=== PATIENT | male | born 1965 | race Caucasian/White ===

== ENCOUNTER 2019-03-03 03:29 | Inpatient (IN) | payer OTHER ==
[2019-03-03] VITALS (81 sets, daily range): BP systolic 54–201; BP diastolic 31–109; BMI 31.2
--- NOTE | ~2019-03-03 | HEMODYNAMI ---
PATIENT:DELIA HINOJOSA MEDICAL RECORD: [id number] : 67 [id number] ADMISSION DATE: 03/03/19 Generatedon:03/03/20197:13 Patient name: DELIA HINOJOSA Patient #: [id number] SSN: : 1965 Date of study: 03/03/2019 Page: Of Hemodynamic Procedure Report Patient Data Patient Demographics Procedure consent was obtained First Name: DELIA Gender: Male Last Name: MICAELA : 1965 Patient #: [id number] Age: 53 year(s) Race: Unknown Additional ID: [id number] Contact details [address]: [address] [place] [address] stre State: [place] City: [place] Zip code: [address] Admission Admission Data Admission Date: 03/03/2019 Admission Time: 3:54 Admit Source: Emergency Insurance Payor: Private department health insurance Room #: D.CV07 Height (in.): 72 BSA: 2.26 (m2) Height (cm.): 182.88 BMI: 31.33 (kg/m2) Weight (lbs.): 231 Weight (kg.): 104.78 Lab Results Lab Result Date: 03/03/2019 Lab Result Time: 0:00 Biochemistry Name Units Result Min Max BUN mg/dl 23 --(----)-* 7 18 Creatinine mg/dl 2.1 --(----)-* 0.6 1.3 CBC Name Units Result Min Max Hemoglobin g/dl 17 --(---*)-- 13.5 17.5 Procedure Procedure Types Cath Procedure Diagnostic Procedure LHC Coronaries only Intra-Aortic Balloon Pump Sedation Charges Moderate Sedation up to 30 minutes PCI Procedure Coronary Stent Coronary Stent Initial Procedure Description Procedure Date Procedure Date: 03/03/2019 Procedure Start Time: 6:05 Procedure End Time: 7:03 Procedure Staff Name Function Seth Esquivel MD Performing Physician Sis Andersen RT Monitor Kai Cunningham RT Scrub Martha Choco RN Nurse Procedure Data Cath Procedure Fluoroscopy Diagnostic fluoroscopy Total fluoroscopy Time: time: 15.9 min 15.9 min Diagnostic fluoroscopy Total fluoroscopy dose: dose: 1939 mGy 1939 mGy Contrast Material Contrast Material Type Amount (ml) Isovue 300 122 Entry Location Entry Primary Successful Side Size Upsize Upsize Entry Closure Succes sful Closure Location (Fr) 1 (Fr) 2 (Fr) Remarks Device Remarks Femoral Right 6 Fr 7 Fr artery Short Short Femoral Left 6 Fr Exoseal artery Short Estimated blood loss: 5 ml Procedure Complications No complications Procedure Medications Medication Administration Route Dosage 0.9% NaCl I.V. 100 ml/hr Oxygen 100 Lidocaine 2% added to field 20 Heparin Flush Bag added to field 2 bags (1000units/500ml NS) Diprivan 1% I.V. 12 mcg/kg/min (Propofol) Levophed (8mg/250ml I.V. drip 15 mcg/min D5W) Heparin Bolus I.V. 35401 units Neosynephrine I.V. drip 60 mcg/kg/min (20mg/250ml D5W) Integrilin (Bolus I.V. 9.5 ml 2mg/ml) Integrilin Drip I.V. drip 8.5 ml/hr (75mg/100ml) Effient 60 mg Hemodynamics Rest BSA: 2.26 (m2) HGB: 17 (g/dl) O2 Consumption: Estimated: 288.56 (ml/min) O2 Cons umption indexed: Estimated:127.68 (ml/min/m) Heart Rate: 93 (bpm) Snapshots Pre Cath Intra NCS Post Cath Vital Signs Time Heart Resp SPO2 etCO2 NIBP (mmHg) Rhythm Pain Sedation Rate (ipm) (%) (mmHg) Status Level (bpm) 5:50:47 96 29 100 0 Measuring NSR 0 (11) 5(A) , No pain 5:52:11 93 30 100 0 Time NSR 0 (11) 5(A) Exceeded , No pain 5:56:17 95 32 96 0 Time NSR 0 (11) 5(A) Exceeded , No pain 6:01:15 89 29 98 0 Measuring NSR 0 (11) 5(A) , No pain 6:02:17 88 30 100 0 62/41(52) NSR 0 (11) 5(A) , No pain 6:07:16 86 31 98 0 Measuring NSR 0 (11) 5(A) , No pain 6:08:38 81 33 100 0 Time NSR 0 (11) 5(A) Exceeded , No pain 6:13:37 94 34 92 0 Measuring NSR 0 (11) 5(A) , No pain 6:15:01 100 34 100 0 Time NSR 0 (11) 5(A) Exceeded , No pain 6:20:00 103 48 100 0 Measuring NSR 0 (11) 5(A) , No pain 6:20:27 131 38 100 0 Time NSR 0 (11) 5(A) Exceeded , No pain 6:25:01 88 35 99 0 85/50(64) NSR 0 (11) 5(A) , No pain 6:30:00 86 33 100 0 Measuring NSR 0 (11) 5(A) , No pain 6:31:22 85 32 90 0 Time NSR 0 (11) 5(A) Exceeded , No pain 6:36:21 82 13 90 0 Measuring NSR 0 (11) 5(A) , No pain 6:37:45 83 29 92 0 Time NSR 0 (11) 5(A) Exceeded , No pain 6:41:59 31 26 94 0 129/92(122) NSR 0 (11) 5(A) , No pain 6:46:58 82 24 100 0 Measuring NSR 0 (11) 5(A) , No pain 6:48:20 83 27 96 0 Time NSR 0 (11) 5(A) Exceeded , No pain 6:53:19 86 31 100 0 Measuring NSR 0 (11) 5(A) , No pain 6:54:43 84 29 97 0 Time NSR 0 (11) 5(A) Exceeded , No pain 6:59:42 85 35 98 0 Measuring NSR 0 (11) 5(A) , No pain 7:01:06 85 30 98 0 62/48(0) NSR 0 (11) 5(A) , No pain Medications Time Medication Route Dose Verified Delivered Reason Notes Effectiveness by by 5:53:27 0.9% NaCl I.V. 100 ml/hr Seth Martha used for Alvin Wilhelm electrical products engineer 5:53:49 Oxygen ventilator 100% FiO2 Seth Martha for low 02 sat s Alvin Wilhelm RN 5:53:55 Lidocaine 2% added to 20ml vial Seth Seth used for field Alvin Esquivel MD procedure 5:54:00 Diprivan 1% I.V. 12 Seth Martha for sedation infusing (Propofol) mcg/kg/min Alvin Wilhelm upon RN arrival 5:54:00 Heparin Flush added to 2 bags Seth Seth used for Bag field Alvin Esquivel MD procedure (1000units/500ml NS) 5:54:55 Levophed I.V. drip 15 mcg/min Seth Martha For hypotensio n infusing (8mg/250ml D5W) Alvin Wilhelm upon RN arrival 6:28:07 Heparin Bolus I.V. 43297 Seth Martha for verified units Alvin Wilhelm anticoagulation with Dr. VASYL Esquivel 6:36:28 Neosynephrine I.V. drip 60 Seth Martha For hypotensio n (20mg/250ml D5W) mcg/kg/min Alvin Wilhelm RN 6:39:36 Integrilin I.V. 9.5 ml Seth Martha for wasted (Bolus 2mg/ml) Alvin Wilhelm antiplatelet 0.5mL RN therapy 6:57:41 Integrilin Drip I.V. drip 8.5 ml/hr Seth Martha for (75mg/100ml) Alvin Wilhelm antiplatelet RN therapy 7:06:47 Effient NGT 60 mg Seth Martha for Alvin Wilhelm antiplatelet RN therapy Procedure Log Time Note 5:21:31 Informed consent obtained and on chart 5:21:34 Admit Source: Emergency department 5:21:50 Diagnostic Cath status Emergency 5:21:51 Martha Wilhelm RN sent for patient. Start room use. 5:21:53 Time tracking: Call back (After hours or weekends) 5:21:56 Plan of Care:Hemodynamics will remain stable., Cardiac rhythm will remain stable., Comfort level will be maintained., Respiratory function will remain adequate., Patient/ family verbilizes understanding of procedure., Procedure tolerated without complication., Recovers from procedure without complications.. 5:37:29 Patient received from ED to CCL 1 On ventilator. Tansferred to table in Supine position. 5:37:30 Warm blankets applied, and rosenda hugger turned on for patient comfort. 5:37:31 Correct patient and procedure confirmed by team. 5:37:31 ECG and BP/O2 sat monitors applied to patient. 5:48:58 Vital chart was started 5:49:01 Baseline sample Acquired. 5:49:38 Full Disclosure recording started 5:49:47 H&P Date Dictated: 03/03/2019 New H&P dictated by physician.. 5:49:49 Pre-procedure instructions explained to patient. 5:49:49 Pre-op teaching completed and patient verbalized understanding. 5:49:50 Family in waiting room. 5:49:52 Patient NPO since Midnight. 5:49:55 Is the patient allergic to Iodine/contrast media? No. 5:49:56 Was the patient premedicated? No 5:50:04 Is patient on blood thinner?No 5:50:06 Patient diabetic? Unknown. 5:50:19 Previous problem with sedation/anesthesia? Unknown ? 5:50:22 Snore? Unknown 5:50:24 Sleep apnea? Unknown 5:50:26 Deviated septum? Unknown 5:50:27 Opens mouth fully? Unknown 5:50:29 Sticks out tongue? Unknown 5:50:32 Airway obstruction? Unknown ? 5:50:35 Dentures? Unknown ? 5:53:27 0.9% NaCl 100 ml/hr I.V. was administered by Martha Wilhelm RN; used for procedure; 5:53:49 Oxygen 100% FiO2 ventilator was administered by Martha Wilhelm RN; for low 02 sats; 5:53:55 Lidocaine 2% 20ml vial added to field was administered by Seth Esquivel MD; used for procedure; 5:54:00 Diprivan 1% (Propofol) 12 mcg/kg/min I.V. was administered by Martha Wilhelm RN; for sedation; infusing upon arrival 5:54:00 Heparin Flush Bag (1000units/500ml NS) 2 bags added to field was administered by Seth Esquivel MD; used for procedure; 5:54:55 Levophed (8mg/250ml D5W) 15 mcg/min I.V. drip was administered by Martha Wilhelm RN; For hypotension; infusing upon arrival 5:56:38 Pre procedure: right dorsailis pedis pulse None 5:56:44 Pre procedure: left dorsailis pedis pulse None 5:56:48 Patient pain scale 0/10 ?. 5:57:07 IV patent on arrival in right hand with 0.9% NaCl at O. 5:57:10 Lab results completed and on chart. 5:57:16 Bilateral groins area was prepped with chlora-prep and draped in sterile fashion 5:57:17 Alarms reviewed by R. N. 5:57:17 Sharps counted by scrub and verified by R.N. 5:57:30 Physician arrived 5:57:30 --------ALL STOP TIME OUT------ 5:57:31 Final Timeout: patient, procedure, and site verified with staff and physician. All members of the team are in agreement. 5:57:37 Bilateral groins site verified by team. 5:57:40 Maximum allowable Isovue 300 dose 550ml. Physician notified. (300ml for normal creatinines. For patients with creatinine of 1.7 or higher multiply weight(kg) x 5 divided by creatinine.) 5:57:45 Fire Safety Assessment: A--An alcohol-based skin anteseptic being used preoperatively., C--Open oxygen or nitrous oxide is being used., D--An ESU, laser, or fiber-optic light is being used. 5:57:50 Physical assessment completed. ASA score P 4 - A patient with severe systemic disease that is a constant threat to life as per Seth Esquivel MD. 5:57:54 Sedation plan: IV Moderate Sedation Medication:Versed, Fentanyl 6:02:59 Patient Weight : 231 lbs 6:03:08 Patient Height : 72 inches 6:03:08 Insurance Payor : Private health insurance 6:03:33 Lab Result : Hemoglobin 17 g/dl 6:03:33 Lab Result : Creatinine 2.1 mg/dl 6:03:33 Lab Result : BUN 23 mg/dl 6:03:39 Procedure started. 6:03:43 Use device set CATH PACK 6:03:44 ACIST Syringe (78007) opened to sterile field. 6:03:45 ACIST Hand Control (73664) opened to sterile field. 6:03:45 ACIST Manifold (21500) opened to sterile field. 6:03:46 Medline Cath Pack ([id number]) opened to sterile field. 6:03:46 Bag Decanter () opened to sterile field. 6:03:47 DIAGNOSTIC WIRE .035 260cm J wire (900102) opened to sterile field. 6:03:59 SHEATH 6FR Perry (OWL003) opened to sterile field. 6:05:01 Local anesthetic to right femoral artery with Lidocaine 2% by Seth Esquivel MD.INITIAL ACCESS ONLY 6:06:23 A 6 Fr Short sheath was inserted into the Right Femoral artery 6:06:44 DIAGNOSTIC Multipack 5Fr catheter set (LN2415) opened to sterile field. 6:07:35 5 Fr jl 4 guide catheter was inserted over the wire 6:08:30 LCA angiography performed. 6:08:32 Injector settings: Ml/sec: 3, Volume: 6, 6:08:46 Catheter removed. 6:09:01 LAD occluded 6:09:12 SHEATH 7FR Perry (ZAP413) opened to sterile field. 6:12:03 IABP 40cm balloon catheter ([id number]) opened to sterile field. 6:16:02 Sheath upsized to a 7 Fr Short. 6:16:57 difficulty getting IABP through 7F sheath; upsized to 8F sheath 6:17:07 40cc IABP inserted into the RFA . 6:21:27 Augmentation: 1:1 per physician. 6:23:41 Unable to obtain BP at this time, MD aware 6:23:57 Local anesthetic to left femerol artery with Lidocaine 2% by Seth Esquivel MD.ADDITIONAL ACCESS 6:25:45 INFLATOR Merit BasixCompak ([id number]) opened to sterile field. 6:25:45 BMW 300cm [place] 2 J wire ([id number]) opened to sterile field. 6:26:43 TUBING High Pressure Extension Tubing (Alvin) ([id number]) opened to sterile field. 6:27:39 GUIDE 6FR XBLAD 3.5 catheter ([id number]) opened to sterile field. 6:28:07 Heparin Bolus 73733 units I.V. was administered by Martha Wilhelm RN; for anticoagulation; verified with Dr. Esquivel 6:28:19 A 6 Fr Short sheath was inserted into the Left Femoral artery 6:28:26 6 Fr xblad 3.5 guide catheter was inserted over the wire 6:29:18 bmw wire advanced. 6:31:09 Wire removed. 6:31:40 WHISPER 300cm guide wire ([id number]) opened to sterile field. 6:36:28 Neosynephrine (20mg/250ml D5W) 60 mcg/kg/min I.V. drip was administered by Martha Wilhelm RN; For hypotension; 6:36:52 whisper wire advanced. 6:36:55 Wire advanced across lesion. 6:37:50 Inflate balloon Inflation number: 1 A EMERGE OTW 3.0 x 20 balloon ([id number]) was prepped and advanced across the Prox LAD, then inflated to 12 COOPER for 0:10 (min:sec). 6:38:17 Inflation number: 2 The EMERGE OTW 3.0 x 20 balloon ([id number]) was reinflated across the Prox LAD, to 8 COOPER for 0:10 (min:sec). 6:39:36 Integrilin (Bolus 2mg/ml) 9.5 ml I.V. was administered by Martha Wilhelm RN; for antiplatelet therapy; wasted 0.5mL 6:42:35 Balloon removed over the wire. 6:44:02 Place stent Inflation Number: 1 A DEVIN OTW 3.0 x 26 stent ([id number]) was prepped and advanced across the Mid LAD. The stent was deployed at 13 COOPER for 0:10 (min:sec). 6:47:19 Place stent Inflation Number: 3 A DEVIN OTW 3.5 x 22 stent ([id number]) was prepped and advanced across the Prox LAD. The stent was deployed at 13 COOPER for 0:10 (min:sec). 6:50:58 Wire removed. 6:51:03 bmw wire advanced. 6:51:25 Stent catheter was removed intact over wire. 6:53:59 Wire removed. 6:54:31 Guide catheter removed. 6:54:44 5 Fr 3drc guide catheter was inserted over the wire 6:55:40 RCA angiography performed. 6:55:43 Injector settings: Ml/sec: 3, Volume: 6, 6:57:35 Catheter removed. 6:57:41 Integrilin Drip (75mg/100ml) 8.5 ml/hr I.V. drip was administered by Martha Wilhelm RN; for antiplatelet therapy; 6:58:57 EXOSEAL 6Fr (EX600) opened to sterile field. 6:59:14 Sheath removed intact; hemostasis achieved with Exoseal to the Left Femoral artery. 7:00:03 Procedure ended.(Physican Out) 7:00:52 Fluoroscopy time 15.90 minutes. 7:01:03 Fluoroscopy dose: 1939 mGy 7:01:03 Flurop Dose total: 1939 7:01:09 Contrast amount:Isovue 300 122ml. 7:01:13 Sharps counted by scrub and verified by R.N. 7:01:17 Insertion/operative site no bleeding no hematoma. 7:01:42 Post-op/insertion site Left Femoral artery dressed using a 4 x 4 and Tegaderm. 7:01:51 Post Procedure Pulses reassessed and unchanged 7:01:56 Post procedure rhythm: unchanged. 7:01:58 Estimated blood loss: 5 ml 7:02:00 Post procedure instruction explained to patient.Patient verbalizes understanding. 7:02:01 Patient needs reinforcement of post procedure teaching. 7:02:31 Procedure type changed to Cath procedure, Diagnostic procedure, LHC, Coronaries only, Intra-Aortic Balloon Pump, Sedation Charges, Moderate Sedation up to 30 minutes, PCI procedure, Coronary Stent, Coronary Stent Initial 7:02:32 Procedure and supply charges have been captured, reviewed, submitted and are correct. 7:02:38 Procedure Complication : No complications 7:02:40 Vital chart was stopped 7:02:41 See physician's report for complete and final results. 7:03:14 IABP was sutured in with 2.0 silk. 7:03:25 Report given to CVICU. 7:03:28 Patient transfered to CVICU with Stretcher. 7:03:30 Procedure ended. 7:03:30 Full Disclosure recording stopped 7:06:47 Effient 60 mg NGT was administered by Martha Wilhelm RN; for antiplatelet therapy; 7:11:54 End room use (Document Last) Intervention Summary Intervention Notes Time ActionType Lesion and Equipment Action# Pressure Duration Attributes Used 6:37:50 Inflate Prox LAD EMERGE OTW 1 12 00:10 balloon 3.0 x 20 balloon ([id number]) 6:38:17 Reinflate Prox LAD EMERGE OTW 2 8 00:10 balloon 3.0 x 20 balloon ([id number]) 6:44:02 Place stent Mid LAD DEVIN OTW 3.0 1 13 00:10 x 26 stent ([id number]) 6:47:19 Place stent Prox LAD DEVIN OTW 3.5 3 13 00:10 x 22 stent ([id number]) Device Usage Item Name Manufacture Quantity Catalog Number [facility] Minimal Lot# / Charge Number Stock Stock Serial# Code ACIST Syringe Acist 1 49156 433615 241673 03648 1 20 (77546) Medical Systems Inc ACIST Hand Acist 1 88926 202226 182102 24127 6 5 Control (18845) [employer] ACIST Manifold Acist 1 10751 653871 950735 53657 3 5 (29337) Medical Systems [employer] Medline Cath Medline 1 [id number] 310514 45638 95537 2 5 Pack ([id number]) Bag Decanter Microtek 1 2001S 152248 10285 08134 1 5 () Medical Inc. DIAGNOSTIC WIRE St Jovanni 1 613892 032920 736055 06336 1 30 .035 260cm J wire (446782) SHEATH 6FR Terumo 1 XJA730 902547 081100 10981 6 40 Perry (ZLB312) DIAGNOSTIC Cardinal 1 TB0351 636038 30928 08496 4 30 Multipack 5Fr Health catheter set (GM4457) SHEATH 7FR Terumo 1 ICC287 849509 047399 73780 8 5 Perry (IZP566) IABP 40cm [facility] 1 [id number] 994810 584624 44710 9 1 Pinevent catheter (558963) ([id number]) INFLATOR Merit Merit 1 UB0660 159667 400590 92164 9 15 [facility] (SQ0740) BMW 300cm Daly 1 [id number] 543957 843974 53172 0 5 [place] 2 J Vascular wire ([id number]) TUBING High Merit 1 [id number] 316843 42630 27816 3 10 Pressure Medical Extension Tubing (Esquivel) (RF5008D) GUIDE 6FR XBLAD Cardinal 1 [id number] 929899 999723 08073 7 10 3.5 catheter Health (18284526) WHISPER 300cm Daly 1 [id number] 099026 334548 57754 9 5 guide wire Vascular (4189958UL) EMERGE OTW 3.0 Payne 1 [id number] 683946 833548 47819 7 5 [id number] x 20 balloon Scientific ([id number]) DEVIN OTW 3.0 x Medtronic 1 [id number] 249053 3545648 42174 7 5 [id number] 26 stent ([id number]) DEVIN OTW 3.5 x Medtronic 1 [id number] 138816 9694760 28104 8 5 [id number] 22 stent ([id number]) EXOSEAL 6Fr Cardinal 1 EX600 928354 318153 79361 9 10 (EX600) Health Signature Audit Wisner Stage Time Signature Unsigned Intra-Procedure 03/03/2019 Sis Andersen 7:13:31 AM RT(R) Signatures Monitor : Sis Andersen RT Signature : Date : Time : [id number] [place] [address]
[2019-03-03 03:50] LABS: MCH 29.9 pg (26.0-34.0); MEAN PLATELET VOLUME 9.6 fL (7.4-10.4); PLATELET COUNT 282 10x3/uL (130-400); RBC 5.68 10x6/uL (4.20-6.10); RDW 13.4 % (11.5-14.5); WBC 34.8 10x3/uL (4.8-10.8)
--- NOTE | 2019-03-03 04:00 | NUR ---
PROPOFOL RATE DECREASED TO 10MCG
[2019-03-03 04:02] LABS: APTT 24.8 SECONDS (22.8-39.4); INR 1.15 (0.85-1.17); PROTIME 14.1 SECONDS (11.6-15.0)
--- NOTE | 2019-03-03 04:05 | NUR ---
NOREPI RATE INCREASED TO 20 MCG/MIN
[2019-03-03 04:06] LABS: ALBUMIN 3.5 g/dL (3.4-5.0); ALKALINE PHOSPHATASE 99 U/L (46-116); ALT (SGPT) 530 U/L (10-68); BILIRUBIN - TOTAL 0.67 mg/dL (0.2-1.3); CALC OSMOLALITY 304 mosm/kg (275-300); CALCIUM 8.5 mg/dL (8.5-10.1); CARBON DIOXIDE 25.7 mmol/L (21.0-32.0); CHLORIDE - SERUM 104 mmol/L (98-107); CREATININE - SERUM 2.1 mg/dL (0.6-1.3); GLUCOSE 318 mg/dL (74-106); POTASSIUM - SERUM 3.6 mmol/L (3.5-5.1); PROTEIN - SERUM 6.9 g/dL (6.4-8.2); SODIUM 145 mmol/L (136-145); UREA NITROGEN 23 mg/dL (7-18); eGFR NON AFRICAN AMERICAN 35 mL/min (90-120)
[2019-03-03 04:20] LABS: LYMPHOCYTES 8 % (15-50); MONOCYTES 6 % (2-11); NEUTROPHILS 74 % (40-80); PLATELET ESTIMATE NORMAL; PLATELET MORPHOLOGY GIANT PLTS PRESENT
[2019-03-03 04:21] LABS: CKMB 210.6 U/L (0.0-3.6)
[2019-03-03 04:28] LABS: CREATINE KINASE 2044 UL (21-232); TROPONIN-I 14.016 ng/mL (0.000-0.060)
--- NOTE | 2019-03-03 04:32 | NUR ---
PT FIGHTING INTUBATION AT THIS TIME. RN AND JAD HUNG AT PT BEDSIDE. PT SINUS SHAHBAZ AT THIS TIME. ATROPINE ADMINISTERED PER JAD HUNG INSTRUCTION.
--- NOTE | 2019-03-03 04:35 | NUR ---
PT SINUS SHAHBAZ AT THIS TIME, DR HUNG EDP AT BEDSIDE. LEVOPHED AND NOREPI INFUSIONS STOPPED AT THIS TIME. RN BEGAN CPR AT DR HUNG INSTRUCTION.
--- NOTE | 2019-03-03 04:42 | NUR ---
PULSE DETECTED AT THIS TIME. CPR STOPPED.
--- NOTE | 2019-03-03 04:45 | NUR ---
DR JOSEPH AT BEDSIDE
--- NOTE | 2019-03-03 04:50 | NUR ---
REGIONAL SALES MANAGER CONSENT FORM SIGNED BY CAROLINE THOMAS WHO IS NEXT OF KIN. CONSENTS WITNESSED AND SIGNED BY WITNESSES WELL.
--- NOTE | 2019-03-03 04:59 | NUR ---
NS INFUSION STOPPED AT THIS TIME.
--- NOTE | 2019-03-03 05:18 | NUR ---
PT BP 85/57, NOREPI RESTARTED AT 2MCG/MIN
--- NOTE | 2019-03-03 05:20 | NUR ---
AGRICULTURE LABORATORY TECHNICIAN RN AT PT BEDSIDE.
--- NOTE | 2019-03-03 05:23 | NUR ---
NOREPI INFUSION INCREASED TO 5MCG/MIN
--- NOTE | 2019-03-03 07:48 | NUR ---
RECIEVED PT FROM CAR SCRUBBER. SEE ASSESSMENT.
--- NOTE | 2019-03-03 08:20 | NUR ---
CONSENT OBTAINED FOR PICC LINE. AARON ROOT HERE.
--- NOTE | 2019-03-03 09:00 | NUR ---
DR CUEVAS HERE SEEING AND ASSESSING PATIENT.
[2019-03-03 09:15] LABS: HEMOGLOBIN 12.4 g/dL (13.5-17.5); RBC 4.22 10x6/uL (4.20-6.10); WBC 36.8 10x3/uL (4.8-10.8)
[2019-03-03 09:16] LABS: HEMATOCRIT 38.2 % (42.0-54.0); MCH 29.4 pg (26.0-34.0); MCHC 32.5 g/dL (31.0-37.0); MCV 90.5 fL (80.0-100.0); MEAN PLATELET VOLUME 9.9 fL (7.4-10.4); PLATELET COUNT 246 10x3/uL (130-400); RDW 13.7 % (11.5-14.5)
[2019-03-03 09:44] LABS: LYMPHOCYTES 11 % (15-50); MONOCYTES 2 % (2-11); NEUTROPHILS 75 % (40-80); PLATELET ESTIMATE NORMAL
--- NOTE | 2019-03-03 10:39 | NUR ---
-CALLED TO INK MAKER TO CHECK OXYGENATION OF PATIENT. HE WAS ON 100% WITH 02 SAT OF 80%. INCREASED PEEP TO [address] JOSEPH
--- NOTE | 2019-03-03 10:40 | NUR ---
03/03/19 0830-RR INCREASED TO 22 AND VT DECREASED TO [address] ZAYAS
[2019-03-03 11:11] LABS: BILIRUBIN - TOTAL 0.34 mg/dL (0.2-1.3); CALCIUM 7.1 mg/dL (8.5-10.1); CREATININE - SERUM 2.3 mg/dL (0.6-1.3)
[2019-03-03 11:25] LABS: ALBUMIN 1.8 g/dL (3.4-5.0); ANION GAP 18.7 mmol/L (8-16); CARBON DIOXIDE 17.3 mmol/L (21.0-32.0); PROTEIN - SERUM 3.4 g/dL (6.4-8.2)
--- NOTE | 2019-03-03 11:30 | NUR ---
DR MEJIA HERE. CT REPLACED DUE TO NON FUNCTIONING. CXR OBTAINED. VIEWED BY DR MEJIA. SUCTION 30 CM.
--- NOTE | 2019-03-03 13:30 | NUR ---
DR MEJIA HERE SEEING PT. DECREASE SUCTION ON CHEST TUBE TO 20CM.
--- NOTE | 2019-03-03 14:00 | NUR ---
FENTANYL STARTED AT 50 MCG/HR. VERSED INFUSING AT 5MG/HR. DIPRAVAN INFUSING AT 4MCG/KG/MIN. AUGMENTED PRESSURE 70
--- NOTE | 2019-03-03 14:00 | NUR ---
TEACY HERE DOING ECHO.
--- NOTE | 2019-03-03 15:06 | NUR ---
03/03/19 1130-PEEP DECREASED TO [address] ZAYAS
[2019-03-03 16:56] LABS: APTT 37.9 SECONDS (22.8-39.4); INR 2.04 (0.85-1.17); PROTIME 22.3 SECONDS (11.6-15.0)
--- NOTE | 2019-03-03 18:38 | NUR ---
FAMILY HAS BEEN AT BEDSIDE ALL DAY BEING UPDATED WITH EVERY RESULT. WEANING ELLIS. INCREASING EPI PER DR ZAYAS VERBAL ORDER. COMPLETE BATH AND PARTIAL LINEN CHANGE.
--- NOTE | 2019-03-03 19:20 | NUR ---
REPORT RECIEVED AND CARE ASSUMED. UNRESPONSIVE TO STIMULATION. MULTIPLE IV FLUIDS. SEE FLOW SHEET. SCLERA EDEMA NOTED. VENT PER ETT. SEE FLOWSHEET FOR SETTINGS. IABP WITH KALIE TO R GROIN. KALIE IS DAMPENED. LEVELED, ZEROED AND FLUSHED. UNABLE TO MAINTAIN A GOOD WAVEFORM. CUFF BP INITIATED. FEBRILE. PERIPHERAL PULSES PALPABLE.
--- NOTE | 2019-03-03 20:25 | NUR ---
[facility] UPDATED ON PT CONDITION. SPOKE WITH AROLDO.
--- NOTE | 2019-03-03 21:15 | NUR ---
FAMILY AT BEDSIDE. SEDATION DECREASED. PT IS WAKING UP. HE IS TRACKING WITH HIS EYES AND FOLLOWS SIMPLE COMMANDS. BP IS INCREASING BUT O2 SAT IS DECREASING. SEDATION ADJUSTED BACK TO RATE PRIOR TO SEDATION VACATION. PT CALMS DOWN O2 SATS ARE GRADUALLY INCREASING.
[2019-03-04] VITALS (94 sets, daily range): BP systolic 68–174; BP diastolic 34–109
--- NOTE | 2019-03-04 01:00 | NUR ---
APTT 38.8. 3000 UNITS HEPARIN GIVEN AND RATE INCREASED TO 800 UNITS/HR.
[2019-03-04 01:21] LABS: HEMATOCRIT 33.9 % (42.0-54.0); HEMOGLOBIN 11.7 g/dL (13.5-17.5); MCH 30.3 pg (26.0-34.0); MCHC 34.5 g/dL (31.0-37.0); MCV 87.8 fL (80.0-100.0); RBC 3.86 10x6/uL (4.20-6.10); WBC 31.3 10x3/uL (4.8-10.8)
--- NOTE | 2019-03-04 05:30 | NUR ---
O2 SAT IS GRADUALLY DECREASING AND BREATH SOUNDS ARE MORE CONGESTED. SPOUSE REMAINS AT BEDSIDE.
[2019-03-04 07:22] LABS: HEMATOCRIT 36.6 % (42.0-54.0); HEMOGLOBIN 11.8 g/dL (13.5-17.5); MCH 29.4 pg (26.0-34.0); MCHC 32.2 g/dL (31.0-37.0); MCV 91.3 fL (80.0-100.0); MEAN PLATELET VOLUME 10.8 fL (7.4-10.4); PLATELET COUNT 181 10x3/uL (130-400); RBC 4.01 10x6/uL (4.20-6.10); RDW 14.4 % (11.5-14.5); WBC 26.7 10x3/uL (4.8-10.8)
--- NOTE | 2019-03-04 08:00 | NUR ---
STEPHEN WITH [facility] CALLED TO CHECK ON STATUS OF PATIENT. LAB RESULTS REVIEWED. ASKED TO BE NOTIFIED WITH CHANGE IN PT STATUS. PT REMAINS FULL CODE.
[2019-03-04 08:03] LABS: CARBON DIOXIDE 21.5 mmol/L (21.0-32.0)
[2019-03-04 08:13] LABS: CREATININE - SERUM 4.7 mg/dL (0.6-1.3)
[2019-03-04 08:14] LABS: ANION GAP 23.4 mmol/L (8-16); CALCIUM 6.6 mg/dL (8.5-10.1); POTASSIUM - SERUM 5.9 mmol/L (3.5-5.1)
[2019-03-04 08:53] LABS: LYMPHOCYTES 17 % (15-50); MONOCYTES 14 % (2-11); NEUTROPHILS 67 % (40-80); PLATELET ESTIMATE NORMAL; ROULEAUX OCC
--- NOTE | 2019-03-04 09:09 | NUR ---
LAB RESULTS CALLED TO DR VIERA. ASKED FOR RENAL TO BE CONSULTED. DR MEJIA BY TO CHECK ON PATIENT. SPOKE WITH FAMILY AT BEDSIDE.
--- NOTE | 2019-03-04 10:50 | NUR ---
ICE PACKS PLACED AT AXILLARY AND GROIN
--- NOTE | 2019-03-04 11:54 | NUR ---
DR VIERA BY TO SEE PATIENT. SPOKE WITH FAMILY. ASKED FOR SEDATION TO BE INCREASED AND PT RR KEPT UNDER 25.
--- NOTE | 2019-03-04 13:02 | NUR ---
SON CAME BY AND ASKED THAT ALL DECISIONS AND PHYSICIAN CONVERSATIONS ARE ADRESSED TO HIM. LET HIM KNOW THAT ALL PHYSICIANS HAVE MADE ROUNDS AT THIS TIME. HE DID NOT ASK ANY ADDITIONAL QUESTIONS OR EXPRESS ANY ADDITIONAL DESIRES. MADE IT KNOWN THAT HE IS THE PATIENT'S FIRST BORN AND THAT EVERYTHING SHOULD GO THROUGH HIM AND NOT THE PATIENT'S GIRLFRIEND.
--- NOTE | 2019-03-04 14:02 | NUR ---
ICE PACKS PLACED AT AXILLARY AND GROIN
--- NOTE | 2019-03-04 15:30 | NUR ---
FULL BATH AND LINEN CHANGE. BERNAL CARE. G WIPES.
--- NOTE | 2019-03-04 17:10 | NUR ---
URINE SAMPLE OBTAINED. ONLY ENOUGH FOR UA. WILL WORK TO GET FOR CULTURE.
--- NOTE | 2019-03-04 17:30 | NUR ---
PT PRESSURES DROPPED TO 70'S. MAXED OUT ON ALL PRESSORS. CALLED AND SPOKE WITH DR VIERA AND DR WARE.
[2019-03-04 17:42] LABS: APPEARANCE HAZY (CLEAR); COLOR YELLOW (YELLOW)
[2019-03-04 17:43] LABS: BILIRUBIN NEGATIVE (NEGATIVE); GLUCOSE 50 mg/dL (NEGATIVE); KETONE NEGATIVE (NEGATIVE); NITRITE NEGATIVE (NEGATIVE); PROTEIN 1+ mg/dL (NEGATIVE); SPECIFIC GRAVITY 1.015 (1.005-1.020); UROBILINOGEN NORMAL (NORMAL)
[2019-03-04 17:44] LABS: BACTERIA MANY /hpf (NONE SEEN); RED CELLS - URINE 25-50 /hpf (0-5)
--- NOTE | 2019-03-04 18:12 | NUR ---
LABS OBTAINED. TOOK MULTIPLE STICKS AND LAB TECHS TO GET SAMPLE.PRESSURES HAVE STABLIZED AT THIS TIME WITH DOPAMINE ON. FAMILY HAS BEEN UPDATED.
[2019-03-04 18:37] LABS: CARBON DIOXIDE 19.2 mmol/L (21.0-32.0)
[2019-03-04 18:48] LABS: ANION GAP 24.8 mmol/L (8-16); CREATININE - SERUM 6.5 mg/dL (0.6-1.3)
[2019-03-04 18:49] LABS: CALCIUM 6.8 mg/dL (8.5-10.1)
--- NOTE | 2019-03-04 18:49 | NUR ---
CRITICAL CALCIUM CALLED FROM LAB, INFORMED PTS NURSE COURTNI
--- NOTE | 2019-03-04 19:10 | NUR ---
REPORT RECIEVED. CARE ASSUMED. SEDATION HAS BEEN OFF FOR 2 HRS. HE IS STARTING TO RESPOND TO STIMULI.
--- NOTE | 2019-03-04 19:30 | NUR ---
VERSED AND FENTANYL RESTARTED. RESPIRATIONS BEGINNING TO DECREASE. O2 SAT INCREASING. WEANING PRESSORS PER CUFF PRESSURES DUE TO KALIE HAVING A DAMPENED WAVEFORM.
--- NOTE | 2019-03-04 21:00 | NUR ---
FAMILY AT BEDSIDE VISITING. I HAVE ASKED THEM TO KEEP STIMULATION OF PT TO A MINIMUM DUE TO HIS O2 SAT DECREASING WITH ANY STIMULI. LEVOPHED HAS BEEN WEANED TO 15 MCG/MIN.
[2019-03-05] VITALS (91 sets, daily range): BP systolic 86–139; BP diastolic 37–93
--- NOTE | 2019-03-05 00:30 | NUR ---
O2 SAT AND BP HAVE BEEN CONSISTANT FOR THE LAST COUPLE OF HRS. BED IS IN REVERSE TRENDELENBERG TO HELP ELEVATE HOB.
--- NOTE | 2019-03-05 07:00 | NUR ---
REPORT RECEVIED FROM THE OFF GOING RN. SEE ASSESSMENT IN THE PTS FLOW SHEET. PT SEDATED ON THE VENTILATOR. SEE RT NOTES FOR VENT SETTINGS. R NARE NGT NOTED TO LIS. SUB Q EMPHAZEMA NOTED TO THE RIGHT UPPER CHEST. PT NOTED TO BE GENERLIZED ANASARTIC. RIGHT UPPER ARM PICC LINE NOTED. HEPARIN, LEVOPHED, ELLIS, NS, FENTANYL, VERSED, HCO3, VASOPRESSEN, DOPAMINE INFUSING, SEE IV FLOW SHEET FOR RATES. MEDS BEING TITRATED. PER ORDERS. RIGHT LATERAL CT NOTED TO 30 OF SUCTION WITH A SMALL AIR LEAK NOTED. RIGHT LUNG DEMINISHED AND COURSE. LEFT LUNG AUDIBLE BUT EXTREAMLY WET AND COUSE THROUGHOUT BOTH LOBES. A BALLON PUMP NOTED THROUGH THE RIGHT GROIN. SEE BALLON PUMP FLOW SHEET. LEGS STRAIGHT. NO BLOOD NOTED IN THE BP TUBING. BILATERAL RADIAL PULSES WEAK AND DOPPLERABLE. R DORSALIS PEDIS AND POSTIOR TIBIAL PULSES DOPPLERABLE. LEFT DP PULSE ABSENT AND THE AUDIBLE TP PULSE. BOTH FEET CYANOTIC. FC NOTED WITH LITTLE TO NO OUT PUT. FIANCE AT THE PTS BEDSIDE. WILL CONT 1:1 CARE.
[2019-03-05 07:25] LABS: APTT 48.1 SECONDS (22.8-39.4)
[2019-03-05 07:28] LABS: BASOPHILS 0.1 % (0-2); EOSINOPHILS 0 % (0-7); HEMATOCRIT 32.9 % (42.0-54.0); HEMOGLOBIN 10.8 g/dL (13.5-17.5); IMMATURE GRANULOCYTES 0.9 % (0-5); LYMPHOCYTES 7.2 % (15-50); MCH 29.4 pg (26.0-34.0); MCHC 32.8 g/dL (31.0-37.0); MCV 89.6 fL (80.0-100.0); MEAN PLATELET VOLUME 11.3 fL (7.4-10.4); MONOCYTES 4.7 % (2-11); NEUTROPHILS 87.1 % (40-80); PLATELET COUNT 130 10x3/uL (130-400); RBC 3.67 10x6/uL (4.20-6.10); RDW 14.4 % (11.5-14.5); WBC 27.7 10x3/uL (4.8-10.8)
[2019-03-05 07:32] LABS: INR 2.63 (0.85-1.17); PROTIME 27.4 SECONDS (11.6-15.0)
[2019-03-05 07:37] LABS: ALBUMIN 2.2 g/dL (3.4-5.0); ALKALINE PHOSPHATASE 62 U/L (46-116); BILIRUBIN - DIRECT 0.93 mg/dL (0.00-0.30); BILIRUBIN - INDIRECT 0.86 mg/dL (0.00-1.00); BILIRUBIN - TOTAL 1.79 mg/dL (0.2-1.3); CALC OSMOLALITY 306 mosm/kg (275-300); CARBON DIOXIDE 23.9 mmol/L (21.0-32.0); CHLORIDE - SERUM 105 mmol/L (98-107); CREATININE - SERUM 7.3 mg/dL (0.6-1.3); GLUCOSE 157 mg/dL (74-106); PHOSPHOROUS 6.4 mg/dL (2.5-4.9); POTASSIUM - SERUM 5.3 mmol/L (3.5-5.1); SODIUM 145 mmol/L (136-145); UREA NITROGEN 55 mg/dL (7-18); VANCOMYCIN - RANDOM 16.6 ug/mL (10.0-20.0); eGFR NON AFRICAN AMERICAN 8 mL/min (90-120)
[2019-03-05 08:15] LABS: PROTEIN - SERUM 4.3 g/dL (6.4-8.2)
[2019-03-05 08:30] LABS: CALCIUM 6.5 mg/dL (8.5-10.1)
[2019-03-05 08:39] LABS: CREATINE KINASE 8506 UL (21-232)
[2019-03-05 08:49] LABS: ALT (SGPT) 10393 U/L (10-68)
--- NOTE | 2019-03-05 08:55 | NUR ---
NOTFIED DR VIERA RT XRAY. DR VIERA STATED TO PAGE DR MEJIA TO MAKE HIM AWARE. DR MEJIA PAGED. WAITING FOR HIM TO PAGE BACK.
--- NOTE | 2019-03-05 09:11 | NUR ---
SPOKE WITH DR MEJIA. SEE ORDERS. PLAN FOR CT PLACEMENT. CONSENT SIGNED BY THE PTS MARTHA LEWISED BY VALERIE FALLON. CONSENT IN THE PTS CHART.
--- NOTE | 2019-03-05 09:21 | NUR ---
Nutrition Follow Up: Chart reviewed. Pt continues intubated and sedated. I>O No BM Labs reviewed Meds noted including Diprivan, Dopamine, Vaso, Levo Rec continue NPO diet for now; not rec to start TF while pt is on multiple pressors. RD following.
--- NOTE | 2019-03-05 10:00 | NUR ---
DR JOSEPH PAGED RT THE PT BECOMING HYPOTENSIVE AND HAVING TO TITRATE THE PRESSORS UP (SEE IV FLOW SHEET.) AND ALSO ABOUT THE AMIODORONE DRIP. HE STATED TO DC AMIODORONE AND TO KEEP TITRATING.
--- NOTE | 2019-03-05 10:22 | NUR ---
SPOKE WITH DR MEJIA R/T PTT AND THE HEPARIN GTT. HE STATED NOT TO CHANGE THE DOSE UNTILL HE SEES THE PT FOR THE CT PLACEMENT.
--- NOTE | 2019-03-05 10:30 | NUR ---
DR CUEVAS AT THE PTS BEDSIDE AND SPOKE WITH THE PT'S FIANCE.
--- NOTE | 2019-03-05 11:00 | NUR ---
REASSESSMENT COMPLETED. NO CHANGES IN THE PTS CONDITION. FAMILY AT THE PTS BEDSIDE. ICE REAPPLIED TO THE PT AXILLA, GROIN, AND CHEST FOR TEMP. WILL CONT 1:1 CARE
--- NOTE | 2019-03-05 11:25 | NUR ---
DR VIERA AT THE PTS BEDSIDE AND RECOMMENDED THAT THE PT BE A MED CODE.
--- NOTE | 2019-03-05 11:30 | NUR ---
CT SUCTION TURNED TO [address] VIERA.
--- NOTE | 2019-03-05 11:50 | NUR ---
PT HEART RATE 180-[address] JOSEPH AND DR VIERA PAGED. CODE CALLED. INSTRUCTED STAFF THAT HE WAS A MED CODE ONLY. DR VIERA ON THE PHONE AND GAVE ORDERS FOR 75MG OF LIDOCAINE AND 150 MG AMIODORONE BOLUS. LIDOCAIE GIVEN AND CONVERTED TO NSR. DR CUEVAS AT THE PTS BEDSIDE AT 1153 AND STATED NOT TO GIVE THE AMIODORONE. AT 1155 DR JOSEPH PAGED BACK AND MADE AWARE OF WHAT HAD HAPPENED AND THE PT CURRENT CONDITION (NSR, PULSE, STABLE BP). GAVE ORDERS TO GO AHEAD AND GIVE THE 150 MG AMIO BOLUS AND TO START 0.5MG/MIN OF AMIODORONE.
--- NOTE | 2019-03-05 12:25 | NUR ---
DR MEJIA AT THE PTS BEDSIDE FOR CT PLACEMENT SUPIORIOR TO THE OLD ONE. DR MEJIA DRESSED THE CT. STAT CXR. DR MEJIA READ IT WITH NO NEW ORDERS. DR MEJIA TURNED BOTH CT TO 30 OF SUCTION.
--- NOTE | 2019-03-05 15:29 | NUR ---
TITRAING PRESSORS OFF PER BP AND RATE. SEE IV FLOW SHEET. NO CHANGE IN DP AND PT PULSES, HOWEVER BILATERAL FEET ARE NO LONGER CYONOTIC.
--- NOTE | 2019-03-05 16:39 | MORECARE ---
CASE MANAGEMENT DISCHARGE SUMMARY PATIENT: DELIA HINOJOSA UNIT: [id number] ADM DATE: 03/03/19 AGE: 53 : 67 SEX: M [facility] AUTHOR: TATY GARZA PHYSICIAN: REFERRING PHYSICIAN: MOHAMUD DUMONT MD DATE OF SERVICE: 03/05/19 Discharge Plan Patient Name: DELIA HINOJOSA [facility] [facility] 1965 Planned Disposition: Anticipated Discharge Date: Discharge Date: Expected LOS: Initial Reviewer: [email or web address] Initial Review Date: 03/03/2019 Generated: 03/05/19 5:39 pm Comments DCP- Discharge Planning Updated by [id number]: Leida Chinchilla on 03/05/19 3:[address] CM spoke with family uncertain of disposition at this time. Patient is very critical and uncertain if he will survive this hospitalization. CM will continue to follow and assist as needed with discharge planning / needs. Patient Name: DELIA HINOJOSA Page [phone] at 1639 All edits/amendments must be made on the electronic document DICTATION DATE: 03/05/191637 FELT HAT MELLOWING MACHINE OPERATOR: BHARATI 03/05/191637 RPT#: [id number] DC DATE: STATUS: ADM IN [facility] [address] [place] [address] END OF REPORT
[2019-03-06] VITALS (90 sets, daily range): BP systolic 85–138; BP diastolic 2–90
[2019-03-06 05:02] LABS: INR 2.16 (0.85-1.17); PROTIME 23.4 SECONDS (11.6-15.0)
[2019-03-06 05:03] LABS: HEMATOCRIT 28.8 % (42.0-54.0); HEMOGLOBIN 9.6 g/dL (13.5-17.5); MCHC 33.3 g/dL (31.0-37.0); MEAN PLATELET VOLUME 11.1 fL (7.4-10.4); PLATELET COUNT 76 10x3/uL (130-400); RBC 3.31 10x6/uL (4.20-6.10); WBC 20.2 10x3/uL (4.8-10.8)
[2019-03-06 05:04] LABS: APTT 39.5 SECONDS (22.8-39.4)
[2019-03-06 05:23] LABS: BILIRUBIN - DIRECT 0.78 mg/dL (0.00-0.30); BILIRUBIN - INDIRECT 0.76 mg/dL (0.00-1.00); BILIRUBIN - TOTAL 1.54 mg/dL (0.2-1.3); CARBON DIOXIDE 27.1 mmol/L (21.0-32.0); CREATININE - SERUM 8.4 mg/dL (0.6-1.3); MAGNESIUM - SERUM 1.8 mg/dL (1.8-2.4); PHOSPHOROUS 7.6 mg/dL (2.5-4.9); PROTEIN - SERUM 3.8 g/dL (6.4-8.2); VANCOMYCIN - RANDOM 22.2 ug/mL (10.0-20.0)
[2019-03-06 05:24] LABS: ANION GAP 18.1 mmol/L (8-16); CALCIUM 5.8 mg/dL (8.5-10.1); POTASSIUM - SERUM 4.2 mmol/L (3.5-5.1)
--- NOTE | 2019-03-06 07:00 | NUR ---
REPORT RECEVIED FROM THE OFF GOING RN. SEE ASSESSMENT IN THE PTS FLOW SHEET. PT SEDATED AND ON THE VENTILATOR. GENERLIZED ANASARCA NOTED. 8.0 ETT 26 AT THE LIP. SEE RT FLOW SHEET FOR VENT SETTINGS. SUQ Q EMPHAZEMA NOTED TO THE UPPER CHEST. RIGHT LATERAL CHEST TUBES NOTED. DRESSING C/D/I. BOTH CONNECTED TO 35 CM OF SUCTION. BOTH NOTED TO HAVE SMALL AIR LEAKS. BILATEARL RADIAL PULSES WEAK BUT PALPABLE. IABP NOTED TO THE RIGHT GROIN. DRESSING C/D/I. RIGHT DP AND PT PULSES PALPABLE. LEFT DP ABSENT AND PALPABLE PT. COLOR PALE. CAP REFILL <3 SECONDS. FC NOTED WITH LITTLE TO NONE DARK YELLOW URINE. VSS AT THIS TIME. NSR. TITRATING PRESSORS PER BP. CALL LIGHT IN REACH. WILL CONT POC.
--- NOTE | 2019-03-06 07:49 | NUR ---
MAG REPLACED PER ELECTROLYE PROTOCHOL.
[2019-03-06 08:06] LABS: LYMPHOCYTES 11 % (15-50); MONOCYTES 15 % (2-11); NEUTROPHILS 59 % (40-80); PLATELET ESTIMATE DECREASED
--- NOTE | 2019-03-06 09:45 | NUR ---
PT BEING TURNED VIA BED Q2 HOURS. PT TOLERAING WELL.
--- NOTE | 2019-03-06 10:15 | NUR ---
THE RENAL SURGICAL ASSISTANT CERTIFIED, STEPHANIE, AT THE PTS BEDSIDE AND DISCUSSED DIALYSIS WITH THE FIANCE AND THE FAMILY MEMBERS. FAMILY AGREED TO PROCEED WITH DIALYSIS.
--- NOTE | 2019-03-06 10:46 | NUR ---
DR MEJIA PAGED AND MADE AWARE THAT THE PT NEEDS A TRIALYSIS CATHETER
--- NOTE | 2019-03-06 11:48 | NUR ---
REASSESSMENT COMPLETED. SEE FLOW SHEET.
--- NOTE | 2019-03-06 13:42 | NUR ---
NATALIE FRANKLIN APN AT THE PTS BEDSIDE AND PLACED TRIALYSIS CATHETER IN THE LEFT IJ. PT TOLERATED WELL. DRESSING C/D/I. STAT CXR CALLED AND NOTIFIED. OK TO USE TRIALYSIS PER RIGOBERTO WEATHERS.
--- NOTE | 2019-03-06 13:52 | NUR ---
WHENEVER XRAY TECHS WHERE GETTING CXR, ETT BECAME DISCONNECTED AND WAS PLUGGED BACK IN. PT DESATTED TO 79 AND SPO2 SLOWLY RISING.
--- NOTE | 2019-03-06 15:15 | NUR ---
HEPARIN INCRAESED PER PROTOCHOL SINCE TRIALYSIS LINE IS PLACED. NO S/SX OF BLEEDING NOTED.
--- NOTE | 2019-03-06 16:24 | NUR ---
PICC LINE DRESSING CHANGED. SLIGHLY BLOODY UNDER THE DRESSING. DRESSING NOW C/D/I.
--- NOTE | 2019-03-06 17:05 | NUR ---
DR VIERA AWARE OF THE PT LOW SATURATION. NO NEW ORDERS.
--- NOTE | 2019-03-06 17:25 | NUR ---
DIALYSIS NURSE AT THE PTS BEDSIDE SETTING UP AND CHECKING HD MACHINE
--- NOTE | 2019-03-06 17:42 | NUR ---
DIALYSIS NURSE STARTED HD.
--- NOTE | 2019-03-06 18:05 | NUR ---
PTS BP STABLE AND HEART RATE REMAINS NSR. WILL CONT MONITOR.
--- NOTE | 2019-03-06 19:03 | NUR ---
REPORT RECEIVED, SHIFT ASSESSMENT COMPLETED PER FLOW SHEET. SEDATED ON VENT VIA ETT. PUPILS 2 CM SLUGGISH REACTION. PULSES WEAK TO PALPATION. IABP TO RT GROIN, DRESSING C/D/I. RT UPPER ARM PIC LINE PATENT, SEE FLOW SHEET FOR IV DRIPS AND RATES. RT NARE NGT TO LIWS, PLACEMENT VERIFIED VIA AUSCULTATION. BERNAL CATHETER TO GRAVITY SECURED. SEE FLOW SHEET FOR COMPLETE ASSESSMENT. WILL CONTINUE TO MONITOR.
--- NOTE | 2019-03-06 20:00 | NUR ---
FAMILY AND SIGNIFICANT OTHER AT BEDSIDE, UPDATE GIVEN, QUESTIONS ANSWERED.
--- NOTE | 2019-03-06 22:00 | NUR ---
VISITORS AT BEDSIDE, SEDATED ON VENT, NO ACUTE CHANGES NOTED. WILL CONTINUE TO MONITOR.
--- NOTE | 2019-03-06 23:01 | NUR ---
REASSESSMENT COMPLETED PER FLOW SHEET, SEE FOR DETAILS. NO ACUTE CHANGES NOTED. WILL CONTINUE TO MONITOR.
[2019-03-07] VITALS (71 sets, daily range): BP systolic 80–138; BP diastolic 43–106
--- NOTE | 2019-03-07 01:00 | NUR ---
NO ACUTE CHANGES NOTED, SEDATED ON VENT, WILL CONTINUE TO MONITOR.
--- NOTE | 2019-03-07 03:10 | NUR ---
REASSESSMENT COMPLETED PER FLOW SHEET, SEE FOR DETAILS. NO ACUTE CHANGES NOTED. WILL CONTINUE TO MONITOR.
--- NOTE | 2019-03-07 05:00 | NUR ---
NO ACUTE CHANGES NOTED, BERNAL CARE PROVIDED. WILL CONTINUE TO MONITOR.
[2019-03-07 05:22] LABS: BASOPHILS 0.1 % (0-2); EOSINOPHILS 0 % (0-7); HEMATOCRIT 28.4 % (42.0-54.0); HEMOGLOBIN 9.6 g/dL (13.5-17.5); IMMATURE GRANULOCYTES 0.8 % (0-5); LYMPHOCYTES 6.2 % (15-50); MCH 29.1 pg (26.0-34.0); MCHC 33.8 g/dL (31.0-37.0); MEAN PLATELET VOLUME 11.6 fL (7.4-10.4); MONOCYTES 5.2 % (2-11); NEUTROPHILS 87.7 % (40-80); RDW 14.2 % (11.5-14.5); WBC 16.8 10x3/uL (4.8-10.8)
[2019-03-07 05:24] LABS: MCV 86.1 fL (80.0-100.0); PLATELET COUNT 51 10x3/uL (130-400)
[2019-03-07 05:56] LABS: ANION GAP 19.5 mmol/L (8-16); BILIRUBIN - DIRECT 1.18 mg/dL (0.00-0.30); BILIRUBIN - INDIRECT 0.66 mg/dL (0.00-1.00); BILIRUBIN - TOTAL 1.84 mg/dL (0.2-1.3); CARBON DIOXIDE 26.5 mmol/L (21.0-32.0); CREATININE - SERUM 8.2 mg/dL (0.6-1.3); PROTEIN - SERUM 4.4 g/dL (6.4-8.2); VANCOMYCIN - RANDOM 17.3 ug/mL (10.0-20.0)
[2019-03-07 06:10] LABS: CALCIUM 6.3 mg/dL (8.5-10.1)
--- NOTE | 2019-03-07 07:10 | NUR ---
ASSISTED THE LOCAL COMPANY TANKER DRIVER WITH FINISHING THE PT BED BATH. X5 STAFF TO ASSIST LOG ROLLING THE PT, FOCUSING ON KEEPING THE LEGS STRAIGHT. NO S/SX OF BREAKDOWN NOTED. FRESH LINENS TO THE BED. PT TOLERATED WELL. VITAL REMAINED THE SAME.
--- NOTE | 2019-03-07 07:30 | NUR ---
REPORT RECEVIED FROM THE OFF GOING RN. SEE ASSESSMENT IN THE PTS FLOW SHEET.
--- NOTE | 2019-03-07 07:48 | NUR ---
DR JOSEPH AT THE PTS BEDSIDE.
--- NOTE | 2019-03-07 08:01 | NUR ---
DR JOSEPH SPOKE WITH THE STEP SON ABOUT POSSIBLY SENDING THE PT TO [facility] FOR HIGHER LEVEL OF CARE WITH POSSIBLE ECHMO/LVAD. STEP SON WILL SPEAK TO THE REST OF THE FAMILY MEMBERS ONCE THEY ARRIVE IN THE HOSPITAL .
--- NOTE | 2019-03-07 08:21 | NUR ---
SPOKE WITH THE FIANCE/FAMILY. THEY HAVE AGREED TO SEND THE PT TO ANOTHER HOSPITAL FOR HIGHER LEVEL OF CARE.
--- NOTE | 2019-03-07 08:30 | NUR ---
CALLED DR JOSEPH'S OFFICE AND SPOKE WITH HIS SECITARY ABOUT FAMILY OKING YESSICASNFER.
--- NOTE | 2019-03-07 10:05 | NUR ---
Nutrition Follow Up: Chart reviewed. Noted pt to possibly transfer to [facility]. Pt continues intubated. I>O No BM since admit Wt gain noted Labs reviewed Meds noted including Vaso, Dopamine, Levo, Diprivan Rec continue NPO for now; not rec to start TF if pt on multiple pressors; will not rec Procalamine due to pt's current renal function. RD following.
--- NOTE | 2019-03-07 10:12 | NUR ---
SPOKE WITH DR JOSEPH. DR JOSEPH STATED HE IS WAITING FOR THE DR WHO WILL BE ACCEPTING THE PT TO PAGE HIM BACK.
--- NOTE | 2019-03-07 10:46 | NUR ---
SPOKE WITH DR NATALY SINGH APN'S NURSE FROM [facility] ([place] . SHE STATED SHE IS WORKING ON GETTING THE PT A BED IN CVICU.
--- NOTE | 2019-03-07 10:52 | NUR ---
SPOKE WITH MELINDA FROM THE TRANSFER CENTER.
--- NOTE | 2019-03-07 12:08 | MORECARE ---
CASE MANAGEMENT DISCHARGE SUMMARY PATIENT: DELIA HINOJOSA UNIT: [id number] ADM DATE: 03/03/19 AGE: 53 : 67 SEX: M ROOM/BED: [facility] AUTHOR: TATY GARZA PHYSICIAN: REFERRING PHYSICIAN: MOHAMUD DUMONT MD DATE OF SERVICE: 03/07/19 Discharge Plan Patient Name: DELIA HINOJOSA Facility: [facility]:[place] : 1965 Planned Disposition: Anticipated Discharge Date: Discharge Date: Expected LOS: Initial Reviewer: [email or web address] Initial Review Date: 03/03/2019 Generated: 03/07/19 1:08 pm DCP- Discharge Planning Updated by [id number]: Leida Chinchilla on 03/05/19 3:[address] CM spoke with family uncertain of disposition at this time. Patient is very critical and uncertain if he will survive this hospitalization. CM will continue to follow and assist as needed with discharge planning / needs. External Providers External Provider: [facility] Next Contact Date: Service Request Date: Service Type: Resolution: Reviewer: Comments: Last DP export: 03/05/19 3:39 p Patient Name: DELIA HINOJOSA Page [phone] at 1208 All edits/amendments must be made on the electronic document DICTATION DATE: 03/07/19 120 BOW STRING MAKER: BHARATI 03/07/19 1207 RPT#: [id number] DC DATE: STATUS: ADM IN [facility] [address] [place] [address] END OF REPORT
--- NOTE | 2019-03-07 12:53 | NUR ---
HELIUM TAKE CHANGED IN THE IABP.
--- NOTE | 2019-03-07 12:53 | MORECARE ---
CASE MANAGEMENT DISCHARGE SUMMARY PATIENT: DELIA HINOJOSA UNIT: [id number] ADM DATE: 03/03/19 AGE: 53 : 67 SEX: M [facility] AUTHOR: TATY GARZA PHYSICIAN: REFERRING PHYSICIAN: MOHAMUD DUMONT MD DATE OF SERVICE: 03/07/19 Discharge Plan Patient Name: DELIA HINOJOSA Facility: [facility]:[place] : 1965 Planned Disposition: Anticipated Discharge Date: Discharge Date: Expected LOS: Initial Reviewer: [email or web address] Initial Review Date: 03/03/2019 Generated: 03/07/19 1:53 pm DCP- Discharge Planning Updated by [email or web address]: Leida Chinchilla on 03/05/19 3:[address] CM spoke with family uncertain of disposition at this time. Patient is very critical and uncertain if he will survive this hospitalization. CM will continue to follow and assist as needed with discharge planning / needs. External Providers External Provider: OTHER-OTHER Next Contact Date: Service Request Date: Service Type: Resolution: Reviewer: Comments: Last DP export: 03/07/19 11:08 a Patient Name: DELIA HINOJOSA Page [phone] at 1253 All edits/amendments must be made on the electronic document DICTATION DATE: 03/07/19 1252 WIPER BLENDER: BHARATI 03/07/19 1252 RPT#: [id number] DC DATE: STATUS: ADM IN [facility] [address] [place] [address] END OF REPORT
--- NOTE | 2019-03-07 15:40 | NUR ---
PT BEING TURNED Q 2HOURS VIA BED TILT. VITALS UNCHAGED. FAMILY MEMBER/FRIENDS IN AND OUT OF THE ROOM VISITING. WILL CONT POC.
--- NOTE | 2019-03-07 17:24 | NUR ---
RECIEVED A PHONE CALL FROM [facility] AND RECEIVED A ROOM IN CV9. SPOKE WITH MARCELO FALLON AND REPORT GIVEN. FAMILY NOTIFIED. SPOKE TO [facility] HELICOPTER RN, VERONICA. HELICOPTOR ON THE WAY.
--- NOTE | 2019-03-07 19:19 | MORECARE ---
CASE MANAGEMENT DISCHARGE SUMMARY PATIENT: DELIA HINOJOSA UNIT: [id number] ADM DATE: 03/03/19 AGE: 53 : 67 SEX: M ROOM/BED: D[facility] AUTHOR: TATY GARZA PHYSICIAN: REFERRING PHYSICIAN: MOHAMUD DUMONT MD DATE OF SERVICE: 03/07/19 Discharge Plan Patient Name: DELIA HINOJOSA Facility: [facility]:[place] : 1965 Planned Disposition: Anticipated Discharge Date: Discharge Date: Expected LOS: Initial Reviewer: [email or web address] Initial Review Date: 03/03/2019 Generated: 03/07/19 8:19 pm Comments DCP- Discharge Planning Updated by [email or web address]: Leida Chinchilla on 03/07/19 6:[address] CM received noticed that patient is to transfer to [facility]. Dr. Nunes at [facility] has accepted patient. [facility] notified and faxed facesheet. Lola from [facility] stated she would call when bed available. CM contacted [facility] and patient wouldn't be able to transport with him on balloon pump. [facility] was then notified and accepted flight. [facility] will be notified when bed is available. Chart copied and disk made. CM will continue to follow and assist as needed with discharge planning / needs. DCP- Discharge Planning Updated by [id number]: Leida Chinchilla on 03/05/19 3:[address] CM spoke with family uncertain of disposition at this time. Patient is very critical and uncertain if he will survive this hospitalization. CM will continue to follow and assist as needed with discharge planning / needs. Last DP export: 03/07/19 11:53 a Patient Name: DELIA HINOJOSA Page [id number] at 1919 All edits/amendments must be made on the electronic document DICTATION DATE: 03/07/191918 CENTRIFUGAL CASTING MACHINE TENDER: BHARATI 03/07/191918 RPT#: [id number] DC DATE: STATUS: ADM IN [facility] [address] [place] [address] END OF REPORT
--- NOTE | 2019-03-07 20:46 | NUR ---
PT HOOKED AND LEFT WITH [facility]. PT SWITCHED TO THEIR IABP VIA [facility]. PT TOOK OFF IN WITH NO CHANGE IN THE PTS CONDITION.
--- NOTE | 2019-03-10 17:10 | MORECARE ---
CASE MANAGEMENT DISCHARGE SUMMARY PATIENT: DELIA HINOJOSA UNIT: [id number] ADM DATE: 03/03/19 AGE: 53 : 67 SEX: M ROOM/BED: D[facility] AUTHOR: TATY GARZA PHYSICIAN: REFERRING PHYSICIAN: MOHAMUD DUMONT MD DATE OF SERVICE: 03/10/19 Discharge Plan Patient Name: DELIA HINOJOSA Facility: [facility]:[place] : 1965 Planned Disposition: Anticipated Discharge Date: Discharge Date: 03/07/2019 Expected LOS: Initial Reviewer: [email or web address] Initial Review Date: 03/03/2019 Generated: 03/10/19 6:10 pm Comments DCP- Discharge Planning Updated by [email or web address]: Leida Chinchilla on 03/07/19 6:[address] CM received noticed that patient is to transfer to [facility]. Dr. Nunes at [facility] has accepted patient. [facility] notified and faxed facesheet. Lola from [facility] stated she would call when bed available. CM contacted [facility] and patient wouldn't be able to transport with him on balloon pump. [facility] was then notified and accepted flight. [facility] will be notified when bed is available. Chart copied and disk made. CM will continue to follow and assist as needed with discharge planning / needs. DCP- Discharge Planning Updated by [id number]: Leida Chinchilla on 03/05/19 3:[address] CM spoke with family uncertain of disposition at this time. Patient is very critical and uncertain if he will survive this hospitalization. CM will continue to follow and assist as needed with discharge planning / needs. Last DP export: 03/07/19 6:19 p Patient Name: DELIA HINOJOSA Page [phone] at 1710 All edits/amendments must be made on the electronic document DICTATION DATE: 03/10/191708 TOXICOLOGY TEACHER: BHARATI 03/10/191708 RPT#: [id number] DC DATE:03/07/19 STATUS: DIS IN [facility] [address] [place] [address] END OF REPORT
== END 2019-03-07 21:33 | disposition short-term general hospital (02) | DRG 270 ==
LOC: D.ER 03:29 → D.EDHOLD 03:54 → D.CVICU 03:54 → D.ICU 06:13 → D.CVICU 06:44
PROVIDERS: Family Medicine; Internal Medicine Cardiovascular Disease; Internal Medicine Nephrology; Internal Medicine Pulmonary Disease; ADMIT Family Medicine; ATTEND Family Medicine
PROC: 0W9930Z Drainage of Right Pleural Cavity with Drainage Device, Percutaneous Approach (ICD-10-PCS; 2019-03-03)
PROC: 5A1945Z Respiratory Ventilation, 24-96 Consecutive Hours (ICD-10-PCS; 2019-03-03)
PROC: 5A02210 Assistance with Cardiac Output using Balloon Pump, Continuous (ICD-10-PCS; 2019-03-03 05:21)
PROC: 027035Z Dilation of Coronary Artery, One Artery with Two Drug-eluting Intraluminal Devices, Percutaneous Approach (ICD-10-PCS; 2019-03-03 05:21)
PROC: 05HY33Z Insertion of Infusion Device into Upper Vein, Percutaneous Approach (ICD-10-PCS; principal; 2019-03-05)
DX: I21.3 ST elevation (STEMI) myocardial infarction of unspecified site (principal); J96.01 Acute respiratory failure with hypoxia; R57.0 Cardiogenic shock; G93.41 Metabolic encephalopathy; N17.0 Acute kidney failure with tubular necrosis; J96.02 Acute respiratory failure with hypercapnia; K72.00 Acute and subacute hepatic failure without coma; I50.21 Acute systolic (congestive) heart failure; J69.0 Pneumonitis due to inhalation of food and vomit; S27.0XXA Traumatic pneumothorax, initial encounter; E87.2 Acidosis; E87.5 Hyperkalemia; D64.9 Anemia, unspecified; K72.90 Hepatic failure, unspecified without coma; Z66 Do not resuscitate; I25.10 Atherosclerotic heart disease of native coronary artery without angina pectoris